=== PATIENT | male | born 1980 | race Caucasian/White ===

== ENCOUNTER 2017-12-09 14:16 | Emergency (ER) | payer OTHER, MEDICAID ==
[~2017-12-09] VITALS: Ht 182.9 cm; Wt 81.7 kg
[~2017-12-09 14:16] MED LIST: AMOXICILLIN875 MG PO; FLEXERIL PO; HYDROCODONE-AP1 EAC6 PO; NAPROSYN500 MG PO; NOHOMEMEDICATIONS; NORCO 5-325 TA1 EACH PO; NORFLEX100 MG PO; PREDNISONE 20 M20 M1 PO; TOBRAMYCIN SULFA5 ML OPHTHALMIC; ULTRAM 50MG TAB50 MG PO
[2017-12-09 14:24] VITALS: BP 141/88
[2017-12-09] MEDS ORDERED: ERYTHROMYCIN E3.5 G3 OPHTHALMIC (14:39)
== END 2017-12-09 14:43 | disposition home or self-care (01) ==
LOC: M.ERS 14:16
DX: S00.212A Abrasion of left eyelid and periocular area, initial encounter (principal); H11.32 Conjunctival hemorrhage, left eye; X58.XXXA Exposure to other specified factors, initial encounter; Y93.9 Activity, unspecified; Y92.89 Other specified places as the place of occurrence of the external cause; Y99.8 Other external cause status

== ENCOUNTER 2018-08-20 00:47 | Emergency (ER) | payer OTHER ==
[~2018-08-20] VITALS: Ht 182.9 cm; Wt 83.9 kg
[~2018-08-20 00:47] MED LIST changes: +ERYTHROMYCIN E3.5 G3 OPHTHALMIC
[2018-08-20] MEDS ORDERED: NORCO 7.5-3251 EACH PO (01:19)
[2018-08-20] MEDS ORDERED: ERYTHROMYCIN E3.5 G3 OPHTHALMIC (01:21)
[2018-08-20 01:32] VITALS: BP 131/88
== END 2018-08-20 01:33 | disposition home or self-care (01) ==
LOC: M.ERS 00:47
DX: H16.133 Photokeratitis, bilateral (principal)